=== PATIENT | male | born 1955 | race Caucasian/White ===

== ENCOUNTER 2016-12-20 18:50 | Inpatient (IN) | payer OTHER ==
[2016-12-20] MEDS ORDERED: NO HOME MEDICATION XX (18:52)
[2016-12-20 22:51] LABS: CREATININE 0.99 mg/dl (0.60-1.30); eGFR VALUE FOR BLACK >90 mL/Min
[2016-12-22] MEDS ORDERED: NORCO 5-325 TA1 EACH PO (13:32)
[2016-12-22] MEDS ORDERED: CLEOCIN HCL300 M1 PO (13:33)
== END 2016-12-22 15:09 | DRG 603 ==
LOC: EDMED 18:50 → EDOS 19:05 → PACU 19:06 → 5EB 21:20
PROVIDERS: Internal Medicine; ADMIT Orthopaedic Surgery Hand Surgery
PROC: 0J9J0ZX Drainage of Right Hand Subcutaneous Tissue and Fascia, Open Approach, Diagnostic (ICD-10-PCS; principal; 2016-12-20)
DX: L02.511 Cutaneous abscess of right hand (principal); B96.89 Other specified bacterial agents as the cause of diseases classified elsewhere
CPT/HCPCS: J0690; J3370